=== PATIENT | male | born 1990 ===

== ENCOUNTER 2023-05-07 20:50 | Emergency (ER) | payer BC ==
[~2023-05-07] VITALS: Ht 188 cm; Wt 85.3 kg
[2023-05-07 21:03] VITALS: O2SAT 97
[2023-05-07] MEDS ORDERED: TDAP DIPH,PERTUSS,TET VAC/PF 0.5 ML DISP.SYRIN IM ONE ×2 (21:30→21:46)
[2023-05-07] MEDS ORDERED: AMOXICILLIN-CLAVUL 875-125MG TABLET PO ONE (21:30)
[2023-05-07] MEDS ORDERED: AMOX-430 PO (21:45)
[2023-05-07] MEDS ORDERED: AMOXICILLIN-CLAVUL 875-125MG TABLET ONE (21:46)
== END 2023-05-07 22:10 | disposition home or self-care (01) ==
LOC: ER 20:53
DX: S81.851A Open bite, right lower leg, initial encounter (principal); L08.9 Local infection of the skin and subcutaneous tissue, unspecified; J45.909 Unspecified asthma, uncomplicated; F17.210 Nicotine dependence, cigarettes, uncomplicated; Z79.2 Long term (current) use of antibiotics; W54.0XXA Bitten by dog, initial encounter; Y93.89 Activity, other specified; Y92.89 Other specified places as the place of occurrence of the external cause; Y99.8 Other external cause status
CPT/HCPCS: 90715; A4606; A4663